=== PATIENT | male | born 1955 | race Caucasian/White ===

== ENCOUNTER → 2018-02-04 | Outpatient (CLI) | payer MEDICAID ==
[~2018-02-04] MED LIST: REGADENOSON 0.4 MG/5 ML SYRINGE ONE
== END ==
LOC: CVU 06:51
PROVIDERS: ATTEND Internal Medicine Cardiovascular Disease
DX: Z01.818 Encounter for other preprocedural examination (principal); I08.0 Rheumatic disorders of both mitral and aortic valves; E78.5 Hyperlipidemia, unspecified; E11.9 Type 2 diabetes mellitus without complications; I10 Essential (primary) hypertension; Z87.891 Personal history of nicotine dependence
CPT/HCPCS: 78452; 93017; 93306; A9502; J2785

== ENCOUNTER 2018-08-13 13:49 | Inpatient (IN) | payer MEDICAID ==
[~2018-08-13] VITALS: Ht 177.8 cm; Wt 98.1 kg
[2018-08-13] MEDS: DILTIAZEM 125 MG in SODIUM CHLORIDE 0.9% 100 ML IV SCH ×2 (04:00→16:30)
[2018-08-13] MEDS ORDERED: SODIUM CHLORIDE FLUSH 10ML SYR IVF ONE (14:30)
[2018-08-13 14:48] LABS: BASOPHILS # (AUTO) 0.06 x10^3/uL (0-0.1); BASOPHILS % (AUTO) 1 % (0-1); EOSINOPHILS % (AUTO) 1 % (1-7); LYMPHOCYTES # (AUTO) 2.22 x10^3/uL (1-3.4); LYMPHOCYTES % (AUTO) 25 % (22-44); MD NO; MEAN CORPUSCULAR HEMOGLOBIN 33.1 pg (27.5-34.5); MEAN CORPUSCULAR HGB CONC 34.4 g/dL (33.2-36.2); MEAN CORPUSCULAR VOLUME 96.1 fL (81-97); MEAN PLATELET VOLUME 7.8 fL (7.4-10.4); MONOCYTES # (AUTO) 0.92 x10^3/uL (0.2-0.8); MONOCYTES % (AUTO) 10 % (2-9); NEUTROPHILS # (AUTO) 5.55 x10^3/uL (1.8-6.8); NEUTROPHILS % (AUTO) 63 % (42-75); PLATELET COUNT 181 x10^3/uL (130-400); RED BLOOD COUNT 4.79 x10^6/uL (4.38-5.82); RED CELL DISTRIBUTION WIDTH 13.3 % (9.4-14.8)
[2018-08-13 14:54] LABS: ALBUMIN 3.2 g/dL (3.4-5.0); ANION GAP 8 mmol/L (5-15); CALCIUM 8.8 mg/dL (8.5-10.1); CHLORIDE 101 mmol/L (98-107); CREATININE 1.25 mg/dL (0.7-1.3)
[2018-08-13 14:58] LABS: FREE T4 (FREE THYROXINE) 0.95 ng/dL (0.76-1.46); TROPONIN I 0.027 ng/mL (0.000-0.045)
[2018-08-13] MEDS ORDERED: RIVA20TA PO (15:28)
[2018-08-13] MEDS ORDERED: DILTIAZEM 5 MG/ML, 5ML IVPush STA (15:49)
[2018-08-13] MEDS ORDERED: DILTIAZEM 125 MG in SODIUM CHLORIDE 0.9% 100 ML IV SCH (17:00)
[2018-08-13] MEDS ORDERED: CARV6.252 PO (17:16)
[2018-08-13] MEDS ORDERED: FURO20TA3 PO (17:16)
[2018-08-13] MEDS ORDERED: IPRA3AMP30 NAS (17:16)
[2018-08-13] MEDS ORDERED: BUDE10.2 NAS (17:16)
[2018-08-13] MEDS ORDERED: ALPR-475 PO (17:16)
[2018-08-13] MEDS ORDERED: ALBU6.7H NAS (17:16)
[2018-08-13] MEDS ORDERED: FOLI-17 PO (17:16)
[2018-08-13] MEDS ORDERED: CLON0.1T PO (17:16)
[2018-08-13] MEDS ORDERED: ROPI3TAB4 PO (17:16)
[2018-08-13] MEDS ORDERED: BUPR-86 PO (17:16)
[2018-08-13] MEDS ORDERED: ASPI-496 PO (17:16)
[2018-08-13] MEDS ORDERED: ONDANSETRON 2MG/ML, 2ML IVPush PRN (17:30)
[2018-08-13] MEDS: INSULIN LISPRO 100 UNITS/ML, PEN SQ-INSULIN SCH ×2 (17:30→21:50)
[2018-08-13] MEDS ORDERED: ACETAMINOPHEN 325 MG TABLET PO PRN (17:30)
[2018-08-13] MEDS ORDERED: ONDANSETRON ODT 4 MG PO PRN (17:30)
[2018-08-13] MEDS ORDERED: DOCUSATE 100 MG CAPSULE PO PRN (17:30)
[2018-08-13] MEDS ORDERED: METOPROLOL TARTRATE 25 MG TABLET ONE (18:37)
[2018-08-13] MEDS: METOPROLOL TARTRATE 25 MG TABLET PO SCH (18:39)
[2018-08-13] MEDS: RIVAROXABAN 20 MG TABLET PO SCH (18:39)
[2018-08-13] MEDS ORDERED: DILTIAZEM 125 MG in DEXTROSE 5% 100 ML IV SCH (19:00)
[2018-08-13 19:34] VITALS: BP 146/90
[2018-08-13] MEDS ORDERED: ALBUTEROL SULFATE 2.5 MG/3 ML NPPB PRN (20:30)
[2018-08-13] MEDS: BUPROPION SR 150 MG TABLET PO SCH (20:55)
[2018-08-13] MEDS: BUDESONIDE 0.5 MG/2 ML INHA NPPB SCH (21:10)
[2018-08-14 01:22] VITALS: BP 157/77
[2018-08-14] MEDS: METOPROLOL TARTRATE 25 MG TABLET PO SCH ×3 (01:26→16:19)
[2018-08-14 05:24] LABS: ANION GAP 7 mmol/L (5-15); CALCIUM 8.3 mg/dL (8.5-10.1); CHLORIDE 103 mmol/L (98-107); CREATININE 0.92 mg/dL (0.7-1.3)
[2018-08-14] MEDS ORDERED: DILTIAZEM 125 MG in DEXTROSE 5% 100 ML IV SCH (06:30)
[2018-08-14 06:52] VITALS: BP 165/90
[2018-08-14] MEDS: INSULIN LISPRO 100 UNITS/ML, PEN SQ-INSULIN SCH ×4 (07:00→21:23)
[2018-08-14] MEDS: ASPIRIN 81 MG TABLET EC PO SCH (08:43)
[2018-08-14] MEDS: FOLIC ACID 1 MG TABLET PO SCH (08:43)
[2018-08-14] MEDS: BUPROPION SR 150 MG TABLET PO SCH ×2 (08:43→21:23)
[2018-08-14] MEDS: FUROSEMIDE 20 MG TABLET PO SCH (08:43)
[2018-08-14] MEDS: DILTIAZEM CD 180 MG CAP.ER.24H PO SCH (08:43)
[2018-08-14] MEDS ORDERED: ROPINIROLE 1MG TABLET PO SCH (09:00)
[2018-08-14] MEDS: BUDESONIDE 0.5 MG/2 ML INHA NPPB SCH ×2 (09:00→21:00)
[2018-08-14] MEDS: DOXAZOSIN 2MG TABLET PO SCH (11:10)
[2018-08-14 12:43] VITALS: BP 150/80
[2018-08-14] MEDS: RIVAROXABAN 20 MG TABLET PO SCH (16:18)
[2018-08-14 19:23] VITALS: BP 163/74
[2018-08-15] MEDS ORDERED: METOPROLOL TARTRATE 25 MG TABLET PO SCH (01:00)
[2018-08-15 01:17] VITALS: BP 165/82
[2018-08-15 07:15] VITALS: BP 167/91
[2018-08-15] MEDS: DILTIAZEM CD 180 MG CAP.ER.24H PO SCH (07:49)
[2018-08-15] MEDS: INSULIN LISPRO 100 UNITS/ML, PEN SQ-INSULIN SCH ×2 (07:49→11:00)
[2018-08-15] MEDS: FOLIC ACID 1 MG TABLET PO SCH (07:50)
[2018-08-15] MEDS: DOXAZOSIN 2MG TABLET PO SCH (07:50)
[2018-08-15] MEDS: BUPROPION SR 150 MG TABLET PO SCH (07:50)
[2018-08-15] MEDS: FUROSEMIDE 20 MG TABLET PO SCH (07:50)
[2018-08-15] MEDS: ASPIRIN 81 MG TABLET EC PO SCH (07:50)
[2018-08-15] MEDS: BUDESONIDE 0.5 MG/2 ML INHA NPPB SCH (09:00)
[2018-08-15] MEDS ORDERED: HYDROCHLOROTHIAZIDE 25 MG TABLET PO SCH (09:00)
[2018-08-15] MEDS ORDERED: METO25TA35 PO (11:51)
[2018-08-15] MEDS ORDERED: DILT180C53 PO (11:51)
[2018-08-15 12:50] VITALS: BP 169/87
== END 2018-08-15 15:11 | disposition home or self-care (01) | DRG 309 ==
LOC: ED 16:14 → EDIP 16:15 → ED 16:18 → 5SO 19:20
PROVIDERS: ADMIT Internal Medicine; ATTEND Internal Medicine
DX: I48.0 Paroxysmal atrial fibrillation (principal); D68.59 Other primary thrombophilia; J96.11 Chronic respiratory failure with hypoxia; J44.1 Chronic obstructive pulmonary disease with (acute) exacerbation; I50.32 Chronic diastolic (congestive) heart failure; I11.0 Hypertensive heart disease with heart failure; I48.92 Unspecified atrial flutter; G25.81 Restless legs syndrome; J44.9 Chronic obstructive pulmonary disease, unspecified; Z66 Do not resuscitate; E66.9 Obesity, unspecified; G47.00 Insomnia, unspecified; I42.9 Cardiomyopathy, unspecified; F10.10 Alcohol abuse, uncomplicated; I35.0 Nonrheumatic aortic (valve) stenosis; E11.9 Type 2 diabetes mellitus without complications; Z79.01 Long term (current) use of anticoagulants; Z80.1 Family history of malignant neoplasm of trachea, bronchus and lung; Z87.891 Personal history of nicotine dependence; Z99.81 Dependence on supplemental oxygen; Z88.1 Allergy status to other antibiotic agents; Z88.0 Allergy status to penicillin; Z88.8 Allergy status to other drugs, medicaments and biological substances; Z68.31 Body mass index [BMI] 31.0-31.9, adult
CPT/HCPCS: 36415; 71046; 80048; 82040; 82962; 83735; 83880; 84439; 84443; 84484; 85025; 93005; 94640; 96374; 99285; G0378; J1815

== ENCOUNTER 2019-07-12 08:02 | Outpatient (CLI) | payer MEDICAID | END 2019-07-12 23:59 | disposition home or self-care (01) | LOC: CFH 08:02 | PROVIDERS: ATTEND Internal Medicine Cardiovascular Disease | DX: I42.9 Cardiomyopathy, unspecified (principal) | CPT/HCPCS: 78452; 93017; A9502; J2785 ==